=== PATIENT | male | born 1960 | race Hispanic/Latino ===

== ENCOUNTER 2017-11-10 12:44 | Inpatient (IN) | payer MEDICARE ==
[~2017-11-10] VITALS: Ht 170.2 cm; Wt 86.2 kg
[~2017-11-10 12:44] MED LIST: AMBIEN10 MG PO; CARDURA8 MG PO; CLINDAMYCIN HC150 MG PO; CYCLOBENZAPRINE10 MG PO; CYCLOBENZAPRINE5 MG PO; DICYCLOMINE HCL10 MG PO; DICYCLOMINE HCL20 MG PO; DIFLUNISAL500 MG PO; FENOFIBRATE200 MG PO; GABAPENTIN300 MG PO; GABAPENTIN800 MG PO; GLIPIZIDE5 MG PO; GLUCOPHAGE1000 MG PO; HUMULIN N100 UNITS/ SC; HUMULIN N100 UNITS/ SQ; HUMULIN R100 UNIT/2; HUMULIN R100 UNIT/2 SC; HUMULIN R100 UNIT/2 SQ; IBUPROFEN600 MG PO; ISOSORBIDE MONO30 MG PO; LANTUS100 UNITS/ SC; LEVOTHYROXINE50 MCG PO; LISINOPRIL2.5 MG PO; LYRICA150 MG PO; METHADONE HCL5 MG PO; METOPROLOL TART25 MG PO; METRONIDAZOLE500 MG PO; NALOXONE H0.4 MG/1 M IV; NITROSTAT0.4 MG PO; NITROSTAT0.4 MG SL; NORCO 10-325 T1 EACH PO; OMEPRAZOLE20 MG PO; OMEPRAZOLE40 MG; PANTOPRAZOLE SO40 MG PO; PLAVIX75 MG PO; PROAIR HFA INH8.5 GM IH; RANEXA500 MG PO; RESTORIL30 MG PO; ROBAXIN500 MG PO; SIMVASTATIN80 MG PO; SUCRALFATE1 GM PO; TAMSULOSIN HCL0.4 MG; TIZANIDINE HCL4 M1 PO; TRAZODONE HCL50 MG PO; ULTRAM50 MG PO; VENLAFAXINE H37.5 MG PO; VENLAFAXINE HCL75 MG PO; VENTOLIN HFA18 GM IH; ZOFRAN4 MG SL
--- OUTSIDE RECORDS SUMMARY | 2017-11-10 12:48 | XMS REPORT ---
Author Author [facility] Address Unknown Phone Unavailable Care Team Providers Care Post Doctoral Fellow Name Role Phone CELESTE RADHA Unavailable Unavailable BERNARDA TALBERT Unavailable Unavailable Abelardo Pritchard Unavailable Unavailable Problems This patient has no known problems. Allergies, Adverse Reactions, Alerts This patient has no known allergies or adverse reactions. Medications This patient has no known medications. Results Test Description Test Time Test Comments Text Results Atomic Results Result Comments Glucose blood fingerstick 2016-08-17 18:58:00 Glucose blood fingerstick (test fumc=HDY5185) 219 mg/dL 65-120 Troponin (Emerg Dept Use Only)2016-08-17 18:49:00* Test Item Value Reference Range Comments Troponin (Emerg Dept Use Only) (test code=TROPED) < 0.03 <0.03 Comment Bed:7 Comment Bed:7Basic Metabolic Xwflz6227-10-13 16:10:00* Test Item Value Reference Range Comments Sodium level (test xtzv=GAS7037) 132 meq/L 135-145 3.6 Chloride measurement (test lrmy=MKO5360) 100 meq/L 101-111 Bicarbonate (test code=CO2) 20 meq/L 21-31 Glucose measurement (test adab=EGK2511) 560 mg/dL 65-120 Repeated & Called to LILLIE FERNANDEZ NP on 08/17/16 at 1559 by HOXIEHO Was there 100% Readback? Y ADA Clinical Practice Recommendation: <100 mg/dl=Normal Fasting Glucose BUN Bld-mCnc (test irtw=4358-9) 9 mg/dL 6-20 Creatinine measurement (test rttv=EUD5538) 0.62 mg/dL 0.61-1.24 The creatinine method used has been calibrated to be traceable to Isotope dilution Mass Spectrometry (IDMS). For more information: www.nkdep.nih.gov Estimated glomerular filtration rate (GFR) determination (test gxgr=95160-3) > 90 mL =/>90 FOR CHRONIC KIDNEY DISEASE: GFR STAGE DESCRIPTION =/>90 STAGE 1 NORMAL--OR-- MINIMAL KIDNEY DAMAGE WITH NORMAL GFR 60-89 STAGE 2 MILD DECREASE IN GFR 30-59 STAGE 3 MODERATE DECREASE IN GFR 15-29 STAGE 4 SEVERE DECREASE IN GFR <15 STAGE 5 KIDNEY FAILURE The Glomerular Filtration Rate (GFR) has been calculated using the IDMS-Traceable MDRD Study Equation. Calcium Level (test code=CA) 8.9 mg/dL 8.5-10.5 Liver (Hepatic) Vebotpub1348-59-10 16:10:00* Test Item Value Reference Range Comments Aspartate aminotransferase (AST) measurement (test leea=XTS7350) 31 [iU]/L 10 -42 ALT/SGPT (test code=SGPT) 29 [iU]/L 10-60 Alkaline Phosphatase (test code=ALK) 115 [iU]/L 42-121 Bilirubin total (test ogxi=TRU0995) 0.5 mg/dL 0.3-1.2 Bilirubin direct (test kfmq=1156-5) 0.1 mg/dL 0-0.2 Serum total protein measurement (test sapd=5405-7) 7.4 g/dL 6.0-8.3 Albumin measurement (test dqpy=BDW4726) 4.3 g/dL 3.2-5.5 Globulin (test code=GLOB) 3.1 g/dL 2.3-3.5 Albumin/Globulin Ratio (test code=A/G) 1.4 1.1-1.8 Creatine Fxaykdcergfnb5297-30-42 16:10:00* Test Item Value Reference Range Comments Creatine Phosphokinase (test code=CPK) 282 [iU]/L 22-269 CKMB Creatine Kinase NK2809-96-95 16:10:00* Test Item Value Reference Range Comments CKMB Creatine Kinase MB (test code=CKMB) 4.6 ng/mL 0.3-4.0 Magnesium kexlltpqnrb9518-58-11 16:10:00* Test Item Value Reference Range Comments Magnesium measurement (test nnzs=47425-9) 2.0 mg/dL 1.8-2.5 Urine dipstick testing at volru-yt-qwph8000-03-11 15:37:00* Test Item Value Reference Range Comments Urine specific gravity measurement (test lpdm=0366-5) <1.005 1.005-1.030 Urine glucose detection (test ysvr=7333-4) 2+ NEG Urine Ketones (test code=UKET) NEGATIVE NEG Urine blood detection (test hlvo=29145-7) Negative NEG Urine pH (test sakg=2193-7) 5.0 5.0-7.0 Urinalysis with microscopy (test qetv=59047-9) NEGATIVE NEG Urine nitrate measurement (test wgcf=40143-9) NEGATIVE NEG Urine Leukocyte Esterase (test code=UESTR) NEGATIVE NEG Comment Bed:7 melvin NEG 2+ NEG NEG NEG 5.0 NEG Y <1.005Troponin (Emerg Dept Use Only)2016-08-17 15:30:00* Test Item Value Reference Range Comments Troponin (Emerg Dept Use Only) (test code=TROPED) < 0.03 <0.03 Comment Bed:7 Test Ordered to Rule Out VTE/DVT? N Comment Bed:7 Test Ordered to Rule Out VTE/DVT? NBrain natriuretic peptide (BNP) xixznjzaany3895-18-77 15:27: 00* Test Item Value Reference Range Comments Brain natriuretic peptide (BNP) measurement (test wnxm=80944-2) 41 pg/mL <= 100 Prothrombin time (PT) with international normalized ratio (INR)2016-08-17 15:18: 00* Test Item Value Reference Range Comments PT Prothrombin Time (test code=PROTIME) 11.1 s 9.5-12.5 INR in Blood by Coagulation assay (test hqyd=84265-4) 0.97 Monitor pts using INR value (not prothrombin time) INR Coumadin Therapy: Low Range ( prophylaxis) 2.0-3.0 High Range (high risk of clot formation) 2.5-3.5 Test Ordered to Rule Out VTE/DVT? N Test Ordered to Rule Out VTE/DVT? NPTT, Activated Partial Nhxrzu7165-85-06 15:18:00* Test Item Value Reference Range Comments PTT, Activated Partial Thromb (test code=PTT) 31.5 s 24.3-36.9 Test Ordered to Rule Out VTE/DVT? N Test Ordered to Rule Out VTE/DVT? NComplete blood count (CBC) with automated white blood cell (WBC) lauoxogmqugw2395-64-49 15:17:00* Test Item Value Reference Range Comments White blood cell count (test ekdt=ERU6005) 8.6 4.3-10.9 Blood erythrocytes count (number/volume) (test nggl=74632-9) 4.73 M/ul 4.33- 5.43 Hemoglobin measurement (test radg=SXN2600) 14.0 g/dL 13.6-17.9 Blood hematocrit (volume fraction) (test uovr=12275-5) 41.6 % 39.6-49.0 MCV (test hvuu=88917-1) 87.9 fL 80-100 MCH (test bqaj=00625-7) 29.6 pg 27.0-35.0 MCHC (test code=MCHC) 33.7 g/dL 32.0-36.0 Platelets (test code=PLT) 233 152-406 Red Cell Distribution Width (test code=RDW) 13.6 % 12.1-15.2 Blood platelet mean volume (test hnie=59053-1) 9.5 fL 7.6-11.3 Neutrophils % (test code=JUMANA%) 65.7 % 41.7-73.7 Lymphocytes/leuk NFr Bld (test xemt=10182-5) 26.3 % 15.3-44.8 Monocyte percentage (test uubt=5953-4) 5.4 % 3.3-12.3 Eosinophil % (test hniq=783-9) 1.8 % 0-4.4 Basophil % (test yfbj=49053-6) 0.8 % 0-1.3 Absolute neutrophil count (test xvou=684-3) 5.7 2.3-7.0 Absolute lymphocyte count (test rxmw=76491-8) 2.3 0.8-3.6 Absolute monocyte count (test csuj=245-3) 0.5 0.2-0.8 Absolute Eosinophils (test code=EOA) 0.2 0-0.4 Absolute Basophils (test code=BASA) 0.1 0-0.1 CT BRAIN WO [place] [address] Patient Name: BELKIS CARVAJAL MR #: [id number] : 1960 Age/Sex: 56/M Req #: [id number] Adm Physician: Ordered by: RADHA ALONSO MD Report #: [id number] Location: ER Room/Bed: Procedure: [id number] CT/CT BRAIN WO Exam Date: Exam Time: REPORT STATUS : Signed EXAMINATION: Head CT without contrast. HISTORY:Status post fall. COMPARISON:Report of CT brain from 11/26/2008. TECHNIQUE: Multidetector axial images were obtained from the foramen magnum to the vertex without contrast. The images were reconstructed using brain and bone algorithms. Thin section brain images were reformatted into coronal and sagittal planes. Intravenous contrast: None IMAGE QUALITY: Acceptable. FINDINGS: Skull-scalp: No abnormality. Parenchyma: No abnormal density. No acute hemorrhage, mass or acute major vascular territorial infarct. Arteries: No density suggestive of thrombosis. Dural sinuses: No abnormal density suggestive of thrombosis. Ventricles: No hydrocephalus or displacement. Extra-axial spaces: No abnormal density. Brain volume: Normal for age. Craniocervical junction: No mass, Chiari malformation, or basilar invagination. Sella: No mass. Paranasal/mastoid sinuses: Mild mucosal thickening in right maxillary sinus. IMPRESSION: No intracranial abnormality. Signed by: Dr. Selina Villela M.D. on 04/22/2017 2:02 AM Dictated By: SELINA VILLELA MD 1 Transcribed By: ARLENE on 04/22/17201 COPY TO: RADHA ALONSO MD CT CERVICAL SPINE WO [place] [address] Patient Name: BELKIS CARVAJAL MR #: [id number] : 1960 Age/Sex: 56/M Req #: [id number] Adm Physician: Ordered by: RADHA ALONSO MD Report #: [id number] Location: Room/Bed: Procedure: 1114- 0002 CT/CT CERVICAL SPINE WO Exam Date: Exam Time: REPORT STATUS: Signed History: Status post fall. Comparison studies: Report of CT cervical spine from 12/04/2008. Technique: Axial images were obtained through the cervical region.. Coronal and sagittal images reconstructed from the axial data.. Intravenous contrast: None Findings: Fractures: None. Soft tissue injuries: None. Atlantoaxial articulation: Intact. Alignment: Normal lordosis. No scoliosis. Cervicomedullary junction: No abnormalities. The foramen magnum is patent. Soft tissues: No abnormalities. Vertebrae: No fractures, infection or neoplasm. Degenerative changes: C3-C4: Posterior discussed effect complex without canal stenosis. C4-C5: Posterior disc osteophyte complex results in mild canal stenosis. C5-C6: Posterior disc osteophyte complex and calcification of the thickened ligamentum flavum results in mild canal stenosis. Posterior disc osteophyte complex and ossification of the posterior longitudinal ligament results in mild canal stenosis. No significant foraminal stenosis.. IMPRESSION: 1. No acute cervical spine abnormalities. 2. Ligament, spinal cord and or vascular abnormalities cannot be excluded on the basis of this examination. 3. Mild cervical spondylosis as detailed above. Signed by: Dr. Selina Villela M.D. on 04/22/2017 2:07 AM Dictated By: SELINA VILLELA MD 6 Transcribed By: ARLENE on 04/22 COPY TO: RADHA ALONSO MD [facility] [place] [address] Patient Name: BELKIS CARVAJAL MR #: [id number] : 1959 Age/Sex: 56/M Req #: [id number] Adm Physician: Ordered by: RADHA ALONSO MD Report #: [id number] Location: ER Room/Bed: Procedure: [id number] DX/CHEST SINGLE (PORTABLE) Exam Date: 04/22/17 Exam Time: 0123 REPORT STATUS: Signed CHEST SINGLE (PORTABLE), 04/22/2017 12:35 AM Technique: CHEST SINGLE (PORTABLE) Comparison: 03/23/2017, 01/22/2017 Clinical history: Fall, slipped in shower, pain Findings: See Impression Impression: 1. Stable mildly enlarged cardiomediastinal silhouette status post sternotomy with broken superior sternotomy wire. 2. No acute abnormality of the lungs or pleural spaces. 3. No acute displaced fracture seen on portable view. Signed by: Dr Patricia Sanford MD on 04/22/2017 2:12 AM Dictated By: PATRICIA SANFORD MD 1 Transcribed By: ARLENE on 04/22/17211 COPY TO: RADHA ALONSO MD HIP RIGHT 2-3 VW (+/- PELVIS) [place] [address] Patient Name: BELKIS CARVAJAL MR #: [id number] : 1960 Age/Sex: 56/M Req #: [id number] Adm Physician: Ordered by: RADHA ALONSO MD Report #: [id number] Location: ER Room/Bed: Procedure: DX/HIP RIGHT 2-3 VW (+/- PELVIS) Exam Date: Exam Time: REPORT STATUS: Signed HIP RIGHT 2-3 VW (+/- PELVIS) Comparison: None Clinical history: Fall, hip pain Findings: Mild bilateral hip degenerative changes with prominent acetabular osseous coverage of the femoral head and femoral head neck junction. No acute fracture or dislocation. Clips overlie the right inguinal region. Partially imaged lumbar hardware. Vascular calcifications. Impression: No acute bony abnormality Signed by: Dr Patricia Sanford MD on 04/22/2017 2:14 AM Dictated By: PATRICIA SANFORD MD 3 Transcribed By: ARLENE on 04/22/17213 COPY TO: RADHA ALONSO MD SP LUMBAR, COMPLETE MIN 4VW [place] [address] Patient Name: BELKIS CARVAJAL MR #: [id number] : 1960 Age/Sex: 56/ M Req #: [id number] [facility] Physician: Ordered by: RADHA ALONSO MD Report #: [id number] Location: ER Room/Bed: ___ Procedure: DX/SP LUMBAR, COMPLETE MIN 4VW Exam Date: 04/22/17 Exam Time: 0108 REPORT STATUS: Signed SP LUMBAR, COMPLETE MIN 4VW Comparison: CT 08/28/2016 Clinical history: Status post fall with lower back pain Findings: Postoperative changes from posterior fusion from left L4 vertebral body to L5-S1 facets and posterior decompression. No evidence of hardware loosening or fracture. Alignment is grossly intact. Unchanged minimal anterior wedging at T12, L1. Scattered degenerative changes, with moderate to severe L2-L4 facet arthrosis, degenerative disc disease and posterior disc osteophyte at L2-3. Impression: No acute bony abnormality Signed by: Dr Patricia Sanford MD on 04/22/2017 2:28 AM Dictated By: PATRICIA SANFORD MD 7 Transcribed By: ARLENE on 04/22 COPY TO: RADHA ALONSO MD US ABDOMEN COMPLETE [place] [address] Patient Name: BELKIS CARVAJAL MR #: [id number] : 1959 Age/Sex: 56/M Req #: [id number] Adm Physician: BERNARDA TALBERT MD Ordered by: SAM RODAS MD Report #: [id number] Location: [facility] Room/Bed: [place] [address] Procedure: [id number] 0005 US/US ABDOMEN COMPLETE Exam Date: 03/26/17 Exam Time: 912 REPORT STATUS: Signed PROCEDURE: ABDOMINAL ULTRASOUND COMPARISON: None. INDICATIONS: Elevated LFTs FINDINGS: Liver: 15.2 cm. Increased hepatic parenchymal echogenicity. No focal mass. Main portal vein: 1.1 cm. Hepatopedal flow. Gallbladder: Cholecystectomy. Common Bile Duct: 5.0 mm. No echogenic filling defect. Sonographic Shannon's sign: Negative. Right kidney: 12.8 cm. No solid or cystic mass, echogenic calculi, or hydronephrosis. Normal parenchymal echogenicity. Focal well-circumscribed 2.8 x 2.5 x 2.8 cm anechoic regions present in the interpolar region of the right kidney. Left kidney: 12.4 cm. No solid or cystic mass, echogenic calculi, or hydronephrosis. Normal parenchymal echogenicity. Spleen: 10.0 cm. No focal mass. Pancreas: The pancreas was insufficiently visualized for comment secondary to overlying bowel gas and increased body habitus. Inferior vena cava: Normal. Aorta: Normal. Ascites: None. CONCLUSION: 1. No acute sonographic abnormality. 2. Hepatic steatosis. 3. Right renal simple cyst. Dictated by: Ginny Jarquin M.D. on 03/26/2017 at 10:40 Electronically approved by: Ginny Jarquin M.D. on 03/26/2017 at 10:40 Dictated By: GINNY JARQUIN MD 104 Transcribed By: DOUG on 03/26/17 1040 COPY TO: SAM RODAS MD CHEST SINGLE (PORTABLE) [place] [address] Patient Name: BELKIS CARVAJAL MR #: [id number] : 1960 Age/Sex: 56/M Req #: [id number] Adm Physician: Ordered by: RADHA ALONSO MD Report #: [id number] Location: ER Room/Bed: Procedure: [id number] DX/CHEST SINGLE (PORTABLE) Exam Date: 03/23/17 Exam Time: 444 REPORT STATUS: Signed CHEST SINGLE ( PORTABLE), 03/23/2017 4:15 AM Technique: CHEST SINGLE (PORTABLE) Comparison: 01/22/2017 Clinical history: Chest pain Findings: Status post median sternotomy with broken superior sternotomy wire. See impression. Impression: Low lung volumes result in accentuation of the cardiomediastinal silhouette and bibasilar vascular crowding. No pleural effusion or pneumothorax. Signed by: Dr Patricia Sanford MD on 03/23/2017 5: 35 AM Dictated By: PATRICIA SANFORD MD 4 Transcribed By: ARLENE on 03/23/17534 COPY TO: RADHA ALONSO MD
[2017-11-10 13:42] LABS: BASOPHILS % 0.4 % (0.0-1.0); EOSINOPHILS # (AUTO) 0.2 (0.0-0.4); EOSINOPHILS % 2.7 % (0.0-6.0); HEMATOCRIT 39.4 % (38.2-49.6); HEMOGLOBIN 13.8 g/dL (14.0-18.0); LYMPHOCYTES # (AUTO) 2.7 (1.0-3.2); LYMPHOCYTES % 34.4 % (18.0-39.1); MEAN CORPUSCULAR HEMOGLOBIN 29.4 pg (28-32); MONOCYTES # (AUTO) 0.7 (0.2-0.8); MONOCYTES % 8.7 % (4.4-11.3); NEUTROPHILS # (AUTO) 4.2 (2.1-6.9); NEUTROPHILS % 53.3 % (38.7-80.0); PLATELET COUNT 317 x10e3/uL (140-360); RED BLOOD COUNT 4.69 x10e6/uL (4.3-5.7); RED CELL DISTRIBUTION WIDTH 13.5 % (11.7-14.4)
[2017-11-10] MEDS ORDERED: MORPHINE SULFATE 5 MG/ML VIAL IV STA (14:06)
[2017-11-10 14:08] LABS: ALANINE AMINOTRANSFERASE 34 IU/L (0-55); ALBUMIN/GLOBULIN RATIO 1.2 (0.8-2.0); ALKALINE PHOSPHATASE 109 IU/L (40-150); AMYLASE 126 U/L (25-125); ANION GAP 14.1 mmol/L (8-16); BLOOD UREA NITROGEN 12 mg/dL (7-26); BUN/CREATININE RATIO 15 (6-25); CALCIUM 9.8 mg/dL (8.4-10.2); CARBON DIOXIDE 22 mmol/L (22-29); CHLORIDE 108 mmol/L (98-107); CREATINE KINASE 754 IU/L (30-200); CREATININE, SERUM 0.81 mg/dL (0.72-1.25); EST GLOMERULAR FILTRATION RATE > 60 ML/MIN (60-); GLUCOSE 101 mg/dL (74-118); LIPASE 98 U/L (8-78); POTASSIUM 3.1 mmol/L (3.5-5.1); SODIUM 141 mmol/L (136-145)
[2017-11-10 14:12] LABS: INR 1.13; PROTHROMBIN TIME 13.6 seconds (11.9-14.5)
[2017-11-10 14:13] LABS: PARTIAL THROMBOPLASTIN TIME 27.6 seconds (23.8-35.5)
[2017-11-10] MEDS ORDERED: ONDANSETRON HCL 4 MG ORAL DISINTEGRATING TAB PO ONE (14:15)
[2017-11-10] MEDS ORDERED: MORPHINE SULFATE 2 MG/ML SYR IV SCH (14:30)
[2017-11-10] MEDS ORDERED: ONDANSETRON HCL 4 MG ORAL DISINTEGRATING TAB PO SCH (14:30)
--- NOTE | 2017-11-10 14:40 | Diagnostic Imaging Report ---
PROCEDURE: A single AP view of the chest. COMPARISON: Chest x-ray 04/22/2017. INDICATIONS: LEFT SIDED NUMBNESS, WEAKNESS. HEADACHE FINDINGS: Lines/tubes: Left-sided pacemaker with 2 intact wires. Median sternotomy wires are present. Lungs: The lungs are well inflated and clear. There is no evidence of pneumonia or pulmonary edema. Pleura: There is no pleural effusion or pneumothorax. Heart and mediastinum: The heart and the mediastinum are unremarkable. Bones: No acute bony abnormality. IMPRESSION: No acute cardiopulmonary disease. Dictated by: Eduard Alfonso M.D. on 11/10/2017 at 14:43 Electronically approved by: Eduard Alfonso M.D. on 11/10/2017 at 14:43
[2017-11-10] MEDS ORDERED: IOPAMIDOL 370 MG/ML 200 ML INFUS..BTL INJ ONE (15:55)
[2017-11-10 16:18] LABS: AMPHETAMINES SCREEN,URINE NEGATIVE (NEGATIVE); BENZODIAZEPINES SCREEN,URINE NEGATIVE (NEGATIVE); PHENCYCLIDINE SCREEN,URINE NEGATIVE (NEGATIVE)
--- NOTE | 2017-11-10 16:24 | Diagnostic Imaging Report ---
EXAM: CTA Chest WITH and without contrast. DATE: 11/10/2017 1:23 PM INDICATION: Chest pain COMPARISON: None TECHNIQUE: CT angiogram of the chest was obtained before and after the administration of IV contrast. Prospective gating was performed. Images reviewed in the axial, coronal, and sagittal planes. 3D reconstructions performed on off-line workstation. IV Contrast: 100 mL Isovue-370. Total DLP: 1960 mGy*cm Est. Eff. Dose DLP x 0.015 x size factor mSv (CTDIvol has been reviewed and is below limits set by [facility]). FINDINGS: Lines and Tubes: Pacemaker with leads terminating right atrium and right ventricular apex. Lower Neck: The visualized thyroid gland is grossly unremarkable with no suspicious or significant nodule identified. Heart and Great Vessels: The pulmonary artery measure 23 mm. No pericardial effusion present. Moderate coronary artery vascular calcifications are present. No central pulmonary embolus is identified. Aortic Annulus: 26 mm. Sinus of Valsalva: 38 mm. Ascending Aorta at level of PA: 30 mm. Mid Arch: 28 mm. Proximal Descendin mm. Mid Descendin mm. Distal Descendin mm. Other: No intramural hematoma or aortic dissection identified. Patent left subclavian artery stent incidentally noted. Lymph Nodes: No suspicious adenopathy. Lungs: No pneumothorax or pleural effusion. Minimal alveolar opacity right lung base. Groundglass opacities medial right lung base adjacent to prominent osteophytes consistent with benign friction phenomenon. Upper abdomen: Cholecystectomy clips and hepatic steatosis partially visualized. Bones and Soft Tissues: Sternotomy wires and moderate degenerative changes spine. IMPRESSION: 1. No aortic dissection. 2. Minimal opacity right lung base, nonspecific. Pneumonitis possible. 3. Hepatic steatosis. Signed by: Dr. Yehuda Hayden MD on 11/10/2017 4:21 PM
--- NOTE | 2017-11-10 16:47 | Diagnostic Imaging Report ---
Exam: Head CT without contrast History: Left-sided weakness Comparison studies: Head CT 04/22/2017. Technique: Axial images were obtained from the skull base to the vertex. Coronal and sagittal images reconstructed from the axial data. Intravenous contrast: None Findings: Scalp: No abnormalities. Bones: No fractures, blastic or lytic lesions. Brain sulci: Appropriate for age. Ventricles: Normal in size and configuration. No hydrocephalus. Extra-axial spaces: No masses, no fluid collection. Parenchyma: No mass, acute hemorrhage or acute or chronic cortical vascular insults. No abnormal densities. Sellar/suprasellar region: No abnormalities. Craniocervical junction: Patent foramen magnum. No Chiari one malformation. Incidental findings: Atherosclerotic calcifications in the carotid siphons and intradural vertebral arteries. IMPRESSION: 1. No acute intracranial abnormalities. 2. No changes from the previous head CT of 04/22/2017. Findings discussed with Dr. Lucas ludwig at 4:36 PM on 11/10/2021. Signed by: Dr. Wili Fox M.D. on 11/10/2017 4:43 PM
[2017-11-10] MEDS ORDERED: ASPIRIN 81 MG CHEW TAB PO ONE (17:15)
[2017-11-10] MEDS ORDERED: HYDROMORPHONE 2MG/ML INJ IV ONE (17:15)
[2017-11-10] MEDS ORDERED: ONDANSETRON HCL INJ 2 MG/ML VIAL IV PRN (17:30)
[2017-11-10] MEDS ORDERED: POTASSIUM CHLORIDE 20 MEQ TAB CR PO ONE (17:50)
[2017-11-10 22:03] LABS: CREATINE KINASE MB 5.1 ng/mL (0-5.0)
[2017-11-10] MEDS: HYDROMORPHONE 2MG/ML INJ IV PRN (22:41)
[2017-11-11] VITALS (13 sets, daily range): BP systolic 105–162; BP diastolic 71–93
[2017-11-11] MEDS: HYDROMORPHONE 2MG/ML INJ IV PRN ×4 (06:22→21:19)
[2017-11-11] MEDS ORDERED: DEXTROSE 50% SYRINGE 50 ML IV PRN (06:30)
[2017-11-11 06:56] LABS: CHOL/HDL RATIO 6.8 (3.9-4.7)
[2017-11-11 07:03] LABS: CREATINE KINASE MB 3.9 ng/mL (0-5.0)
[2017-11-11] MEDS ORDERED: NON-FORMULARY MEDICATION (Cyclobenzaprine Hcl (Flexeril) 10 MG) PO PRN (07:45)
[2017-11-11] MEDS ORDERED: NON-FORMULARY MEDICATION (Gabapentin 800 MG) PO SCH (07:45)
[2017-11-11] MEDS ORDERED: TRAMADOL HCL 50 MG TAB PO PRN (07:45)
[2017-11-11] MEDS: INSULIN REGULAR, HUMAN 100 UNIT/1 ML 3ML VIAL SQ SCH ×4 (07:56→21:02)
[2017-11-11] MEDS ORDERED: CYCLOBENZAPRINE HCL 10 MG TAB PO PRN (08:15)
[2017-11-11] MEDS: SODIUM CHLORIDE 0.9% 1000ML 1,000 ML IV SCH (08:22)
[2017-11-11] MEDS: METHADONE HCL 5 MG TAB PO SCH ×2 (08:22→19:45)
[2017-11-11] MEDS: METOPROLOL TARTRATE 25 MG TAB PO SCH ×2 (08:23→09:00)
[2017-11-11] MEDS: VENLAFAXINE HCL 75 MG CAPCR PO SCH (08:23)
[2017-11-11] MEDS: ISOSORBIDE MONONITRATE 30 MG TAB CR PO SCH ×2 (08:23→12:11)
[2017-11-11] MEDS: ASPIRIN 325 MG TAB EC PO SCH (08:23)
[2017-11-11] MEDS: TAMSULOSIN HCL 0.4 MG CAP PO SCH (08:23)
[2017-11-11] MEDS: CLOPIDOGREL BISULFATE 75 MG TAB PO SCH (08:24)
[2017-11-11] MEDS: LISINOPRIL 2.5 MG TAB PO SCH (08:24)
[2017-11-11] MEDS: GABAPENTIN 400 MG CAP PO SCH ×2 (08:24→21:18)
--- NOTE | 2017-11-11 08:42 | History and Physical ---
PRIMARY CARE PHYSICIAN: Dr. Ortiz CHIEF COMPLAINT: Left-sided weakness and numbness. HISTORY OF PRESENT ILLNESS: This is a 57-year-old man with a history of stroke and TIA, now developing left-sided weakness and numbness. It started with left sharp pain to his left posterior scalp and then his left face became numb. His left cheek had a droop. He had left arm and left leg numbness and weakness. Had difficulty walking. Throbbing pain in the left eyeball. Now, the patient continues to have some weakness and numbness in his left arm and left leg. He does have chronic weakness in the left arm and left leg from previous stroke, but he states it is worse now. Denies any chest pain or shortness of breath. PAST MEDICAL HISTORY: Stroke with residual left-sided weakness, TIAs, syncope, diabetes mellitus, type 2, pancreatitis, hypertension, hypothyroidism, fibromyalgia, hepatitis, depression, rheumatoid arthritis, chronic pain syndrome, diabetic neuropathy, cigarette abuse, BPH. PAST SURGICAL HISTORY: Coronary stent placement times 4, knee surgery, back surgery, left arm surgery, neuro surgery, fundoplication, permanent pacemaker placement. ALLERGIES: PER ELECTRONIC MEDICAL RECORDS. FAMILY HISTORY/SOCIAL HISTORY: Patient is single. Does not have any children. Occasional alcohol. Smokes a quarter pack of cigarettes per day. MEDICATIONS: Per electronic medical record. REVIEW OF SYSTEMS: Denies any dizziness. PHYSICAL EXAMINATION VITAL SIGNS: Have been reviewed. GENERAL: A tired-appearing man resting in bed. HEENT: Anicteric. Pupils respond to light. No oral lesions. CARDIOVASCULAR: Normal S1 and S2. LUNGS: Moderate breath sounds. ABDOMEN: Soft, nontender and nondistended. EXTREMITIES: No edema or calf tenderness. NEUROLOGICAL: He is alert and oriented times 3. Moves all extremities. His left arm and left leg are 4/5 motor strength. SKIN: Dry. MUSCULOSKELETAL: He has a left-sided chest palpable cardiac device subcutaneously. LABS: Reviewed. MEDICATIONS: Reviewed. ASSESSMENT AND PLAN: This is a 57-year-old man with: 1. Transient ischemic attack: Computerized tomography scan is negative. Unable to obtain an MRI. May benefit from CTA. Neurology consultation. Resume Plavix. 2. Cigarette abuse: Counseled on cessation. Use nicotine patch. 3. Diabetes mellitus: Obtain hemoglobin A1c and lipid panel. 4. Hypertension: Continue medication regimen. 5. Psychosomatoform disorder. 6. Depression and fibromyalgia: Continue home medications. 7. Diabetic neuropathy: Will use gabapentin. 8. Chronic pain syndrome: Will hold off his pain medication at this time. Will continue methadone, however. 9. Hypothyroidism: Continue Synthroid. 10. Gastroesophageal reflux disease: Continue proton pump inhibitor. 11. Hyperlipidemia: Continue high dose statin. 12. BPH: Continue Flomax. 13. Major depressive disorder/anxiety disorder: Continue venlafaxine and cyclobenzaprine for his fibromyalgia. 14. Physical therapy consultation. 15. Prophylaxis: Will use Lovenox and Pepcid. 16. Disposition: Follow up neurology recommendations. Will obtain CTA. Job#: [id number] NATHALIE
[2017-11-11] MEDS: PANTOPRAZOLE SOD 40 MG TABEC PO SCH (08:59)
[2017-11-11] MEDS ORDERED: PANTOPRAZOLE SOD 40 MG TABEC PO SCH (09:00)
[2017-11-11] MEDS ORDERED: VENLAFAXINE HCL 75 MG TAB PO SCH (09:00)
[2017-11-11] MEDS ORDERED: LEVOTHYROXINE SODIUM 50 MCG TAB PO SCH (09:00)
[2017-11-11 15:13] LABS: CREATINE KINASE MB 3.9 ng/mL (0-5.0)
[2017-11-11] MEDS ORDERED: IOPAMIDOL 370 MG/ML 200 ML INFUS..BTL INJ ONE (16:02)
[2017-11-11] MEDS ORDERED: SODIUM CHLORIDE 0.9% 100 ML ONE (16:03)
--- NOTE | 2017-11-11 16:36 | Diagnostic Imaging Report ---
Intracranial CTA History: Weakness, left-sided numbness, possible CVA, Comparison studies:Head CT of 11/10/2017. Technique: Axial images were obtained from the skull base to the vertex. Coronal and sagittal images reconstructed from the axial data. Intravenous contrast: 100 cc of Omnipaque 300. Findings: Internal carotid arteries: Approximately 40-50% stenosis at the right paraophthalmic segment due to hard and soft plaque. Greater than 50% stenosis in the left paraophthalmic segment due to hard and soft plaque. Nonstenotic hard plaque in the left cavernous segment. Middle cerebral arteries: Patent, no abnormalities in the M1 and proximal M2 segments. Anterior cerebral arteries: Patent, no abnormalities in the A1 and A2 segments. Vertebral arteries: Calcified plaque bilaterally result in approximately 50% stenosis. Basilar artery: Patent, no abnormalities. Posterior cerebral arteries: Patent, no abnormalities. Anatomical variants: Anterior communicating artery: Patent. Posterior communicating arteries: Hypoplastic bilaterally. Vertebral arteries: Codominant. Incidental findings: Mild mucosal thickening in the right maxillary sinus with small bilateral maxillary sinus retention cysts. IMPRESSION: 1. Atherosclerosis in the bilateral carotid siphons with approximately 50-60% stenosis in the left paraophthalmic segment and approximately 40-50% stenosis in the right paraophthalmic segment. 2. Atherosclerosis in the vertebral arteries with approximately 50% stenosis bilaterally in the proximal segments. 3. No additional intracranial CTA abnormalities. Signed by: Dr. Wili Fox M.D. on 11/11/2017 4:33 PM
[2017-11-11] MEDS: ENOXAPARIN SOD INJ 40 MG/0.4 ML SYR SC SCH (17:07)
[2017-11-11] MEDS ORDERED: SIMVASTATIN 80 MG TAB PO SCH (21:00)
[2017-11-11] MEDS: FENOFIBRATE 200 MG PO SCH (21:00)
[2017-11-11] MEDS ORDERED: FENOFIBRATE 200 MG PO SCH (21:00)
[2017-11-11] MEDS: SIMVASTATIN 40 MG TAB PO SCH (21:18)
[2017-11-12] MEDS: HYDROMORPHONE 2MG/ML INJ IV PRN ×3 (02:40→16:50)
[2017-11-12] MEDS: SODIUM CHLORIDE 0.9% 1000ML 1,000 ML IV SCH ×2 (05:45→23:45)
[2017-11-12] MEDS: LEVOTHYROXINE SODIUM 25 MCG TABLET PO SCH (05:45)
[2017-11-12] MEDS: METHADONE HCL 5 MG TAB PO SCH ×2 (07:45→19:45)
[2017-11-12 08:22] VITALS: BP 101/57
[2017-11-12] MEDS: INSULIN REGULAR, HUMAN 100 UNIT/1 ML 3ML VIAL SQ SCH ×2 (08:22→11:30)
[2017-11-12] MEDS: VENLAFAXINE HCL 75 MG CAPCR PO SCH (08:22)
[2017-11-12] MEDS: ASPIRIN 325 MG TAB EC PO SCH (08:22)
[2017-11-12] MEDS: PANTOPRAZOLE SOD 40 MG TABEC PO SCH (08:22)
[2017-11-12] MEDS: GABAPENTIN 400 MG CAP PO SCH ×2 (08:22→20:30)
[2017-11-12] MEDS: TAMSULOSIN HCL 0.4 MG CAP PO SCH (08:22)
[2017-11-12] MEDS: CLOPIDOGREL BISULFATE 75 MG TAB PO SCH (08:22)
[2017-11-12 08:27] VITALS: BP 101/57
[2017-11-12] MEDS: LISINOPRIL 2.5 MG TAB PO SCH (09:00)
[2017-11-12] MEDS: ISOSORBIDE MONONITRATE 30 MG TAB CR PO SCH (09:00)
[2017-11-12] MEDS: METOPROLOL TARTRATE 25 MG TAB PO SCH (09:00)
[2017-11-12 12:00] VITALS: BP 109/70
[2017-11-12] MEDS ORDERED: DEXTROSE 50% SYRINGE 50 ML IV PRN (14:15)
--- NOTE | 2017-11-12 14:53 | Consultation ---
DATE OF CONSULTATION: November 12, 2017 ENDOCRINE CONSULTATION This is a patient of Dr. Penaloza. Thank you very much for referring this patient. This patient came to the hospital with history of left-sided weakness and numbness. Patient is a known diabetic for 15 to 20 years. Has multiple complications related to diabetes, severe diabetic sensorimotor neuropathy, coronary artery disease, hypertension, status post TIA and stroke in the past. Patient has a problem with his speech and also difficulty walking. He has multiple other medical problems including history of hypothyroidism, hepatitis, rheumatoid arthritis, chronic pain syndrome, he is a chronic smoker as well. Patient had stent placement done in the past for his coronary artery disease. Patient tells me that he takes a combination of NPH and regular insulin at home. Usually the NPH is around 50 units twice a day and regular insulin about 30 to 35 three times a day. His blood sugars have been in the ranges of 267 to 18 and hemoglobin A1c significantly elevated at 12.6. PHYSICAL EXAMINATION GENERAL: The patient is alert, awake, a little bit apprehensive. VITALS: His heart rate is around 78. Blood pressure 130/80 mmHg. HEENT: Essentially unremarkable. Thyroid is palpable. Clinically he is near euthyroid. CHEST: Bilateral vesicular breathing. No rales heard. CARDIAC: Both 1st and 2nd heart sounds. There is no 3rd or 4th heart sound. Ejection sound grade 2/6. EXTREMITIES: Patient has evidence of diabetic sensory neuropathy in both upper extremities and he has weakness on the left upper and lower extremities. CLINICAL IMPRESSION 1. Diabetes mellitus type 2, uncontrolled with complications. 2. Chronic smoker. 3. Coronary artery disease. 4. Transient ischemic attack, rule out cerebrovascular accident with left-sided weakness. 5. Hypothyroidism. 6. History of depression. 7. Hyperlipidemia. The plan at this time is to do hemoglobin A1c, thyroid function test, monitor his blood sugars and put him on Levemir and Humalog combination. Thanks for referring this patient. I will be following this patient with you. Job#: [id number] SAMANTHA
[2017-11-12 16:02] VITALS: BP 116/54
[2017-11-12] MEDS: ENOXAPARIN SOD INJ 40 MG/0.4 ML SYR SC SCH (16:40)
[2017-11-12] MEDS: INSULIN LISPRO 100 UNIT/1 ML 3ML VIAL SQ SCH ×4 (16:40→20:31)
[2017-11-12] MEDS: INSULIN DETEMIR 100 UNIT/ML PEN SQ SCH (16:40)
--- NOTE | 2017-11-12 17:57 | Consultation ---
DATE OF CONSULTATION: November 11, 2017, at 5:15. NEUROLOGICAL CONSULTATION A patient of Dr. Mulugeta Penaloza. REASON FOR CONSULTATION: Possible CVA. HISTORY OF PRESENT ILLNESS: This is a 57-year-old male with multiple medical problems including diabetes mellitus type 2, hypertension, pancreatitis, hypothyroidism, fibromyalgia, history of diabetic neuropathy. He was brought to the hospital because of onset of some numbness of the left face, drooping of the left face, numbness and weakness of the left arm and leg. He states he developed sudden difficulty walking. The patient states that he has previous strokes in the past with residual mild left hemiparesis. The patient denies any headache at the time of this evaluation, no visual disturbance. Speech is somewhat dysarthric because of the lack of dentures. SURGICAL HISTORY: Coronary stents, knee surgeries, back surgeries, permanent pacemaker. MEDICATION: Has been reviewed electronically. ALLERGIES: ALSO REVIEWED ELECTRONICALLY. REVIEW OF SYSTEMS: Twelve steps noncontributory. GENERAL PHYSICAL EXAMINATION VITAL SIGNS: Blood pressure was 144/87, pulse 73. He was afebrile. LUNGS: Clear to auscultation. HEART: Regular sinus rhythm. No murmur. ABDOMEN: No organomegaly. MUSCULOSKELETAL/LOWER EXTREMITIES: No edema, no cyanosis, no clubbing. NEUROLOGIC Mental status: He is alert. He is oriented x3. His speech, as mentioned, is slightly dysarthric but it is related to being edentulous. Cranial nerves: External ocular movements were full. Visual field was normal. No facial weakness. Tongue protrudes midline. Motor power: Patient states that he is unable to elevate his legs against gravity, but during the motor examination with the knees flexed there is no weakness of the hips on flexion of the hips. Flexion and extension of the knees 5/5. Dorsiflexion of the ankles 5/5. Plantarflexion 5/5. Dorsal extension 5/5. Deep tendon reflexes: Triceps, biceps, radials 1+. Knee jerks and ankle jerks were absent bilaterally. Plantar stimulation is down bilaterally. Coordination: [id number] is normal. Gait: Deferred. HEAD: Normocephalic. NECK: Supple. Carotid pulsations were present bilaterally. There were no bruits. LABORATORY WORKUP: Has been reviewed in detail. The only thing that is elevated is the glucose. A CT scan of the brain showed no acute pathology. A CT angio has shown some bilateral mild blockage of the internal carotids, less than 50%. intracranial circulation. No acute stenosis. IMPRESSION 1. Transient ischemic attack. 2. Hypertension. 3. Status post previous cerebrovascular accident with mild left hemiparesis. 4. Diabetes mellitus. 5. Hypertension. 6. Coronary artery disease. I have reviewed the CT scan of the brain myself. It shows no acute pathology, some chronic small-vessel disease. The CT angio shows some bilateral carotid blockage in the 50% to 55%. We are recommending physical therapy and speech therapy consult. Job#: [id number] EV
[2017-11-12 19:59] VITALS: BP 122/71
[2017-11-12] MEDS: FENOFIBRATE 200 MG PO SCH (20:30)
[2017-11-12] MEDS: SIMVASTATIN 40 MG TAB PO SCH (20:31)
[2017-11-13] VITALS (7 sets, daily range): BP systolic 92–146; BP diastolic 61–72
[2017-11-13] MEDS: HYDROMORPHONE 2MG/ML INJ IV PRN ×3 (00:07→15:46)
[2017-11-13] MEDS: LEVOTHYROXINE SODIUM 25 MCG TABLET PO SCH (06:27)
[2017-11-13] MEDS ORDERED: ASPIRIN81 MG PO (07:44)
[2017-11-13] MEDS: METHADONE HCL 5 MG TAB PO SCH ×2 (07:45→19:45)
[2017-11-13] MEDS: GABAPENTIN 400 MG CAP PO SCH ×2 (08:20→20:52)
[2017-11-13] MEDS: TAMSULOSIN HCL 0.4 MG CAP PO SCH (08:20)
[2017-11-13] MEDS: INSULIN DETEMIR 100 UNIT/ML PEN SQ SCH ×2 (08:20→16:53)
[2017-11-13] MEDS: VENLAFAXINE HCL 75 MG CAPCR PO SCH (08:20)
[2017-11-13] MEDS: ASPIRIN 325 MG TAB EC PO SCH (08:20)
[2017-11-13] MEDS: METOPROLOL TARTRATE 25 MG TAB PO SCH (08:20)
[2017-11-13] MEDS: INSULIN LISPRO 100 UNIT/1 ML 3ML VIAL SQ SCH ×8 (08:20→20:52)
[2017-11-13] MEDS: CLOPIDOGREL BISULFATE 75 MG TAB PO SCH (08:45)
[2017-11-13] MEDS: PANTOPRAZOLE SOD 40 MG TABEC PO SCH (08:45)
[2017-11-13] MEDS: ISOSORBIDE MONONITRATE 30 MG TAB CR PO SCH (09:00)
[2017-11-13] MEDS: LISINOPRIL 2.5 MG TAB PO SCH (09:00)
[2017-11-13] MEDS: ENOXAPARIN SOD INJ 40 MG/0.4 ML SYR SC SCH (16:53)
[2017-11-13] MEDS: FENOFIBRATE 200 MG PO SCH (20:52)
[2017-11-13] MEDS: SIMVASTATIN 40 MG TAB PO SCH (20:52)
[2017-11-13] MEDS ORDERED: HYDROMORPHONE 1MG/1ML INJ IV PRN (21:30)
[2017-11-14 01:07] VITALS: BP 123/64
[2017-11-14] MEDS: LEVOTHYROXINE SODIUM 25 MCG TABLET PO SCH (05:30)
[2017-11-14 06:00] VITALS: BP 107/53
[2017-11-14] MEDS: INSULIN LISPRO 100 UNIT/1 ML 3ML VIAL SQ SCH ×6 (07:30→15:57)
[2017-11-14 07:37] VITALS: BP 119/63
--- NOTE | 2017-11-14 08:01 | Progress Note ---
DATE: November 12, 2017 TIME: 7 a.m. OVERNIGHT: No events. REVIEW OF SYSTEMS: Denies any dizziness. PHYSICAL EXAMINATION VITAL SIGNS: Reviewed. GENERAL: A tired-appearing man resting in bed. HEENT: Anicteric. CARDIOVASCULAR: Normal S1 and S2. LUNGS: Moderate breath sounds. ABDOMEN: Soft, nontender and nondistended. EXTREMITIES: No edema or calf tenderness. NEUROLOGICAL: Alert and oriented times 3. Moves all extremities. He has 5/5 motor strength in the extremities in his left arm and left leg. SKIN: Dry. PSYCHIATRIC: Flat affect. LABS: Reviewed. MEDICATIONS: Reviewed. ASSESSMENT: A 57-year-old man with: 1. Transient ischemic attack. 2. Cigarette abuse. 3. Diabetes mellitus, type 2. 4. Hypertension. 5. Depression/fibromyalgia. 6. Diabetic neuropathy. 7. Chronic pain syndrome. 8. Hypothyroidism. 9. Gastroesophageal reflux disease. 10. Hyperlipidemia. 11. BPH. 12. Major depressive disorder and anxiety disorder. 13. Physical deconditioning. PLAN 1. Continue physical therapy. 2. Continue current medication regimen. 3. CTA shows some disease. 4. Follow up ultrasound imaging of the carotids. 5. Physical therapy. 6. Discharge planning. Job#: [id number] NATHALIE
--- NOTE | 2017-11-14 08:04 | Progress Note ---
DATE: November 13, 2017 TIME: 7 a.m. OVERNIGHT: No events. REVIEW OF SYSTEMS: Denies any dizziness. PHYSICAL EXAMINATION VITAL SIGNS: Reviewed. GENERAL: A tired-appearing man resting in bed. HEENT: Anicteric. CARDIOVASCULAR: Normal S1 and S2. LUNGS: Moderate breath sounds. ABDOMEN: Soft and nontender. EXTREMITIES: No edema. SKIN: Dry. PSYCHIATRIC: Flat affect. NEUROLOGICAL: 4/5 motor strength in the left extremities. LABS: Reviewed. MEDICATIONS: Reviewed. ASSESSMENT: A 57-year-old man with: 1. Transient ischemic attack. 2. Cigarette abuse. 3. Diabetes mellitus. 4. Hypertension. 5. Depression and fibromyalgia. 6. Diabetic neuropathy. 7. Chronic pain syndrome. 8. Hypothyroidism. 9. Gastroesophageal reflux disease. 10. Hyperlipidemia. 11. BPH. 12. Major depressive disorder and anxiety disorder. 13. Physical deconditioning. PLAN 1. Continue with physical therapy. 2. Continue blood pressure control. 3. Continue diabetic control. 4. Continue Lovenox prophylactically. 5. Physical therapy and discharge planning. Job#: [id number] [place]
[2017-11-14 08:10] LABS: BASOPHILS % 0.7 % (0.0-1.0); EOSINOPHILS # (AUTO) 0.3 (0.0-0.4); EOSINOPHILS % 4.8 % (0.0-6.0); HEMATOCRIT 36.2 % (38.2-49.6); HEMOGLOBIN 12.5 g/dL (14.0-18.0); LYMPHOCYTES % 33.7 % (18.0-39.1); MEAN CORPUSCULAR HEMOGLOBIN 29.6 pg (28-32); MEAN CORPUSCULAR HGB CONC 34.5 g/dL (31-35); MEAN CORPUSCULAR VOLUME 85.8 fL (81-99); MONOCYTES # (AUTO) 0.6 (0.2-0.8); MONOCYTES % 9.1 % (4.4-11.3); NEUTROPHILS # (AUTO) 3.1 (2.1-6.9); NEUTROPHILS % 51.2 % (38.7-80.0); PLATELET COUNT 263 x10e3/uL (140-360); RED BLOOD COUNT 4.22 x10e6/uL (4.3-5.7); RED CELL DISTRIBUTION WIDTH 14.2 % (11.7-14.4)
--- NOTE | 2017-11-14 08:12 | Progress Note ---
DATE: November 14, 2017 TIME: 7:40 a.m. OVERNIGHT: No events. REVIEW OF SYSTEMS: Denies any dizziness. PHYSICAL EXAMINATION VITAL SIGNS: Reviewed. GENERAL: A tired-appearing man resting in bed. HEENT: Anicteric. CARDIOVASCULAR: Normal S1 and S2. LUNGS: Moderate breath sounds. ABDOMEN: Soft, nontender and nondistended. EXTREMITIES: No edema. SKIN: Dry. PSYCHIATRIC: Flat affect. NEUROLOGIC: Left extremity 4/5 motor strength. LABS: Reviewed. MEDICATIONS: Reviewed. ASSESSMENT: A 57-year-old man with: 1. Transient ischemic attack. 2. Cigarette abuse. 3. Diabetes mellitus. 4. Hypertension. 5. Depression and fibromyalgia. 6. Diabetic neuropathy. 7. Chronic pain syndrome. 8. Hypothyroidism. 9. Gastroesophageal reflux disease. 10. Major depressive disorder and anxiety disorder. 11. Physical deconditioning. PLAN 1. Continue physical therapy. 2. Awaiting skilled facility placement. 3. Obtain labs this morning. 4. Glucose better controlled. 5. Blood pressure well controlled. 6. Server Developer saw no significant disease and not requiring surgery at this time. 7. Continue medication regimen of aspirin and statin. Blood pressure control. Plavix. Job#: [id number] NATHALIE
[2017-11-14 08:15] VITALS: BP 119/63
[2017-11-14 08:31] LABS: BLOOD UREA NITROGEN 7 mg/dL (7-26); BUN/CREATININE RATIO 10 (6-25); CARBON DIOXIDE 25 mmol/L (22-29); CHLORIDE 106 mmol/L (98-107); CREATININE, SERUM 0.72 mg/dL (0.72-1.25); EST GLOMERULAR FILTRATION RATE > 60 ML/MIN (60-); GLUCOSE 195 mg/dL (74-118); SODIUM 139 mmol/L (136-145)
[2017-11-14] MEDS: VENLAFAXINE HCL 75 MG CAPCR PO SCH (08:59)
[2017-11-14] MEDS: TAMSULOSIN HCL 0.4 MG CAP PO SCH (08:59)
[2017-11-14] MEDS: ASPIRIN 325 MG TAB EC PO SCH (08:59)
[2017-11-14] MEDS: GABAPENTIN 400 MG CAP PO SCH (09:00)
[2017-11-14] MEDS: METOPROLOL TARTRATE 25 MG TAB PO SCH (09:00)
[2017-11-14] MEDS: CLOPIDOGREL BISULFATE 75 MG TAB PO SCH (09:00)
[2017-11-14] MEDS: LISINOPRIL 2.5 MG TAB PO SCH (09:00)
[2017-11-14] MEDS: ISOSORBIDE MONONITRATE 30 MG TAB CR PO SCH (09:00)
[2017-11-14] MEDS: PANTOPRAZOLE SOD 40 MG TABEC PO SCH (09:00)
[2017-11-14] MEDS: INSULIN DETEMIR 100 UNIT/ML PEN SQ SCH (09:03)
[2017-11-14] MEDS ORDERED: SODIUM CHLORIDE 0.9% 1000ML 1,000 ML IV SCH (11:15)
[2017-11-14] MEDS ORDERED: SODIUM CHLORIDE 0.9% 1000ML 500 ML IV ONE (11:15)
[2017-11-14 11:36] VITALS: BP 90/56
[2017-11-14 16:01] VITALS: BP 102/52
== END 2017-11-14 16:54 | DRG 69 ==
LOC: ER 12:44 → ERHOLD 17:29 → IMCU 21:47 → MED/SURG2 11-11 22:26
PROVIDERS: ADMIT Internal Medicine; ATTEND Internal Medicine
DX: G45.9 Transient cerebral ischemic attack, unspecified (principal); I69.354 Hemiplegia and hemiparesis following cerebral infarction affecting left non-dominant side; R07.2 Precordial pain; I10 Essential (primary) hypertension; Z95.0 Presence of cardiac pacemaker; E03.9 Hypothyroidism, unspecified; M79.7 Fibromyalgia; G89.4 Chronic pain syndrome; F45.9 Somatoform disorder, unspecified; E11.42 Type 2 diabetes mellitus with diabetic polyneuropathy; K21.9 Gastro-esophageal reflux disease without esophagitis; F32.9 Major depressive disorder, single episode, unspecified; N40.0 Benign prostatic hyperplasia without lower urinary tract symptoms; E78.5 Hyperlipidemia, unspecified; F17.200 Nicotine dependence, unspecified, uncomplicated; E11.65 Type 2 diabetes mellitus with hyperglycemia; F41.9 Anxiety disorder, unspecified
CPT/HCPCS: 36415; 70450; 70496; 71045; 71275; 80048; 80053; 80061; 80307; 82150; 82550; 82553; 82948; 83036; 83690; 83880; 84132; 84484; 85025; 85379; 85610; 85730; 92523; 93005; 93880; 96372; 97139; 99284; J1650; J2270; J7030; J7050; Q9967